=== PATIENT | male | born 1950 | race Caucasian/White ===

== ENCOUNTER 2022-11-17 15:00 | Inpatient (IN) | payer MEDICARE, OTHER, SELFPAY ==
[2022-11-17] VITALS (18 sets, daily range): BP systolic 129–171; BP diastolic 58–111; PULSE 84–135; RESP 19–22; TEMP 36.4–38.6; O2SAT 88–95; BMI 35.1
--- NOTE | ~2022-11-17 | XR_ITS ---
EXAMINATION: XR chest 1V portable INDICATION: Increasing shortness of breath TECHNIQUE: Portable AP chest at 1527 hours COMPARISON: 02/01/2017 FINDINGS: There are airspace opacities of the mid and lower lung zones. Cardiomegaly is noted. No ple ural effusion or pneumothorax. More focal airspace opacities are seen at the left costophrenic angle. Surgical clips project over the right upper quadrant and lower thorax. IMPRESSION: 1. Airspace opacities of the mid and lower lung zones, and more focal airspace opacity of the left co stophrenic angle, consistent with atelectasis versus pneumonia versus pulmonary edema. Reviewed, dictated and finalized at location L. APPLIANCE INSTALLER IMPRESSION: 1. Airspace opacities of the mid and lower lung zones, and more focal airspace opacity of the left costophrenic angle, consistent with atelectasis versus pneu monia versus pulmonary edema.
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
--- NOTE | 2022-11-17 15:03 | ED.SOB ---
HPI - SOB/Dyspnea General Chief Complaint: Weakness Stated Complaint: Ambulance Time Seen by Provider: 11/17/22 15:03 Source: patient, EMS and RN notes reviewed Mode of arrival: EMS Limitations: no limitations History of Present Illness HPI Narrative: patient states that his son was sick 1st about a week ago and then his was sick. He began getting ill 5 days ago. He says he just continued to get worse and more short of breath. He did not get any vaccinations for flu or COVID. patient has a history of COPD, hypertension, hyperlipidemia. MD elicited complaint: shortness of breath Pertinent past history: COPD Onset (ago): day(s) (5) Context: recent illness Timing: constant and progressively worsening Severity: moderate Exacerbating factors: exertion Relieving factors: nothing Known history of: COPD Associated symptoms: wheezing Treatment prior to arrival: oxygen Related Data Home oxygen amount: none Home Medications Medication Instructions Recorded Confirmed albuterol 90 mcg/actuation aerosol 90 mcg inhalation QID PRN Wheezing 11/17/22 11/17/22 inhaler amlodipine 10 mg tablet 10 mg PO DAILY 11/17/22 11/17/22 aspirin 81 mg tablet 81 mg PO DAILY 11/17/22 11/17/22 escitalopram oxalate 10 mg tablet 10 mg PO DAILY 11/17/22 11/17/22 fluticasone 250 mcg-salmeterol 50 1 inh inhalation Q12H 11/17/22 11/17/22 mcg/dose blistr powdr for inhalation fluticasone prop.50 mcg 2 spray intranasal DAILY 11/17/22 11/17/22 spray,suspen-sod.chloride 0.9% nasal spray kit metoprolol tartrate 50 mg tablet 50 mg PO BID 11/17/22 11/17/22 pravastatin 20 mg tablet 20 mg PO DAILY 11/17/22 11/17/22 tamsulosin 0.4 mg capsule 0.4 mg PO DAILY 11/17/22 11/17/22 Allergies Allergy/AdvReac Type Severity Reaction Status Date / Time No Known Allergies Allergy Verified 11/17/22 15:22 Review of Systems Review of Systems: All systems reviewed & are unremarkable except as noted in HPI and below Constitutional: Constitutional: Denies fever(s) Cardiovascular: Cardiovascular: Denies chest pain and Denies rapid heart rate Respiratory: Respiratory: Reports as per HPI Gastrointestinal: Gastrointestinal: Denies nausea and Denies vomiting Musculoskeletal: Musculoskeletal: Reports myalgias Neurologic: Reports headache(s) [facility] Past Medical History Medical History (Updated 11/17/22 @ 18:39 by Madhu Vanegas MD) BPH (benign prostatic hyperplasia) COPD (chronic obstructive pulmonary disease) Depression Hyperlipidemia Hypertension Exam Const: General: no acute distress, alert and ill appearing acutely Nutritional Appearance: well nourished and obese centrally obese Orientation/consciousness: patient oriented x3 Limitations: no limitations HENMT: Head: normal to inspection Ears: external ears normal Face/Nose/Sinus: Normal external nose present Face and sinus: normal facial exam Mouth: Yes moist mucous membranes Eyes: Conjunctivae: conjunctivae normal Pupils: Equal, round and reactive pupils present EOM: EOMs intact bilaterally Neck: Neck: normal visual inspection Resp: Effort & Inspection: tachypneic Auscultation: wheezes (mild) scattered wheezes Cardio: Rate: tachycardic Rhythm: abnormal rhythm irregularly irregular GI: GI Palp: Yes Soft to palpation and No Tenderness to palpation present (GI) Auscultation: normal bowel sounds Back/Spine/Pelvis: Cervical Spine: cervical ROM normal Thoracic/Lumbar Spine: thoraco-lumbar ROM normal Skin: General skin exam: normal color Rashes: no rashes Neuro: General: patient oriented x3, moves all extremities, no focal motor deficits and CN's II-XI intact bilaterally Speech: normal speech Extrem: General: normal to inspection and no clubbing, cyanosis or edema Psych: Mental Status: mental status grossly normal Affect: normal affect Attitude: cooperative Course Course Emergency Course: Patient given fluid bolus initially possible sepsis. Also given 1 g Rocephin a
[2022-11-17] MEDS: IBUPROFEN 600 MG TABLET PO (15:26)
[2022-11-17] MEDS: SODIUM CHLORIDE 0.9% IV 1,000 ML 999 ML IV CONT (15:26)
--- NOTE | 2022-11-17 15:38 | ECG_ITS ---
Measurements Intervals [place] Rate: 127 P: TX: 0 QRS: -69 QRSD: 145 T: 45 QT: 309 QTc: 450 Interpretive Statements ATRIAL FLUTTER/TACHYCARDIA WITH RAPID VENTRICULAR RESPONSE RIGHT BUNDLE BRANCH BLOCK LEFT ANTERIOR FASCICULAR BLOCK BASELINE ARTIFACT- I, II, III, AVR, AVL, AVF ABNORMAL ECG NO PREVIOUS ECG AVAILABLE FOR COMPARISON Electronically Signed On 11-17-2022 16:58:54 PEN OR PENCIL ASSEMBLY MACHINE OPERATOR by Shayne Gallegos D.O.
[2022-11-17 15:42] LABS: Influenza A QL RT-PCR Negative (Negative); Influenza B QL RT-PCR Negative (Negative); SARS-CoV-2 RNA PCR Positive (Negative)
[2022-11-17 15:44] LABS: Basophils Absolute Auto 0.05 K/mm3 (0.00-0.10); Basophils Percent Auto 0.3 % (0.0-1.0); Eosinophils Absolute Auto 0.22 K/mm3 (0.02-0.50); Eosinophils Percent Auto 1.4 % (1.0-6.0); Hematocrit 35.4 % (37.0-46.0); Hemoglobin 12.3 g/dL (12.4-15.3); Immature Granulocyte Absolute 0.08 K/mm3 (0.00-0.00); Immature Granulocyte Percent A 0.5 % (0.0-0.0); Lymphocytes Absolute Auto 1.25 K/mm3 (1.10-4.50); Lymphocytes Percent Auto 7.8 % (18.0-42.0); Mean Corpuscular HGB Conc 34.7 g/dL (32.0-36.0); Mean Corpuscular Hemoglobin 34.4 pg (27.0-31.0); Mean Corpuscular Volume 98.9 fL (78.0-102.0); Mean Platelet Volume 9.2 fl (8.7-11.0); Monocytes Percent Auto 5.6 % (2.0-11.0); Neutrophils Absolute Auto 13.6 K/mm3 (1.7-7.2); Neutrophils Percent Auto 84.4 % (50.0-70.0); Platelet Count Result 389 K/mm3 (150-420); Red Blood Count 3.58 M/mm3 (4.70-6.10); Red Cell Distribution Width 14.1 % (11.6-14.4); White Blood Count 16.1 K/mm3 (4.8-10.8)
[2022-11-17] MEDS: ALBUTEROL SULFATE (*SP) INHALER 4 PUFF INHALATION ×2 (15:59→19:58)
[2022-11-17 16:10] LABS: Alanine Aminotransferase 14 U/L (16-63); Albumin Level 3.4 g/dL (3.4-5.0); Alkaline Phosphatase 152 U/L (46-116); Anion Gap 11 mmol/L (8-16); Aspartate Amino Transferase 18 U/L (15-37); Bilirubin,Total 0.7 mg/dL (0.00-1.00); Blood Urea Nitrogen 20 mg/dL (7-18); Calcium 8.8 mg/dL (8.5-10.1); Carbon Dioxide 24 mmol/L (21-32); Chloride 96 mmol/L (98-108); Estimated Glomerular Filt Rate 42; Ferritin 279 ng/mL (26-388); Glucose 188 mg/dL (70-99); Magnesium 1.9 mg/dL (1.8-2.4); NT Pro B Type Natriuretic Pept 303 pg/mL (0-125); Osmolality Calculated 279 mOsm/kg (285-295); Potassium 4.4 mmol/L (3.5-5.1); Sodium 131 mmol/L (136-145); Total Protein 7.2 g/dL (6.4-8.2)
[2022-11-17 16:12] LABS: CRP 13.3 mg/dL (0.0-0.9); Troponin I 11.6 ng/L (0.00-60.4)
--- NOTE | 2022-11-17 16:20 | PC.NURSE ---
SPOKE WITH FAMILY ARNALDO AND LAWRENCE THAT WERE IN THE WAITING ROOM AND UPDATED ON PT STATUS, THEY LEFT FOR THE EVENING. PT IS AWARE OF STATUS AT THIS TIME. PT IS COVID + AND ISOLATION PRECAUTIONS HAVE BEEN IN PLACE. IV MEDICATIONS ARE INFUSING ORDERED WITHOUT DIFFICULTY. WILL CONTINUE TO MONITOR. PT IS REPOSITIONED IN BED WITH PILLOWS IN PLACE. WILL CONTINUE TO MONITOR.
--- NOTE | 2022-11-17 16:39 | PC.NURSE ---
PT IS TO BE ADMITTED TO ROOM 204, HAS BEEN NOTIFIED AT [phone]. PT AND ARE AWARE AND AGREEABLE TO PLAN OF CARE. WILL CONTINUE TO MONITOR.
--- NOTE | 2022-11-17 17:10 | ADMGEN ---
This patient, Mohan Zapien, was admitted to 2nd Floor Room 204-2. Patient/family oriented to hospital policies and general routines including ID bracelet, bed and alarms, visiting hours, pain management, procedures, bathroom and other care routines, personal items, smoking policy, room service/diet, and visiting hours. Information on how to activate the Rapid Response Team has been discussed. Patient/Family are encouraged to report perceived risks to care and to ask questions if they do not understand what they are told or what they should do.
[2022-11-17] MEDS: SALMET XINAFT/FLUTIC PROPIN 250 MCG/50 MCG INH CAP 1 PUFF INHALATION (18:15)
[2022-11-17] MEDS: METOPROLOL TARTRATE 50 MG TAB PO (19:59)
[2022-11-18] VITALS (7 sets, daily range): BP systolic 140–158; BP diastolic 74–84; PULSE 82–106; RESP 19–20; TEMP 36.9–37.1; O2SAT 0–93
[2022-11-18] MEDS: SODIUM CHLORIDE 0.9% IV 1,000 ML 75 ML IV CONT (00:06)
[2022-11-18] MEDS: FUROSEMIDE INJ 20 MG/2 ML VIAL 10 MG IV PUSH (00:06)
[2022-11-18 05:18] LABS: Basophils Absolute Auto 0.02 K/mm3 (0.00-0.10); Basophils Percent Auto 0.1 % (0.0-1.0); Hemoglobin 11.6 g/dL (12.4-15.3); Immature Granulocyte Absolute 0.11 K/mm3 (0.00-0.00); Immature Granulocyte Percent A 0.7 % (0.0-0.0); Lymphocytes Absolute Auto 0.83 K/mm3 (1.10-4.50); Lymphocytes Percent Auto 5.6 % (18.0-42.0); Mean Corpuscular HGB Conc 34.1 g/dL (32.0-36.0); Mean Corpuscular Hemoglobin 33.7 pg (27.0-31.0); Mean Corpuscular Volume 98.8 fL (78.0-102.0); Mean Platelet Volume 9.5 fl (8.7-11.0); Monocytes Absolute Auto 0.34 K/mm3 (0.10-0.90); Monocytes Percent Auto 2.3 % (2.0-11.0); Neutrophils Absolute Auto 13.6 K/mm3 (1.7-7.2); Neutrophils Percent Auto 91.3 % (50.0-70.0); Platelet Count Result 383 K/mm3 (150-420); Red Blood Count 3.44 M/mm3 (4.70-6.10); White Blood Count 14.9 K/mm3 (4.8-10.8)
[2022-11-18] MEDS: SALMET XINAFT/FLUTIC PROPIN 250 MCG/50 MCG INH CAP 1 PUFF INHALATION ×2 (05:30→16:50)
[2022-11-18 05:32] LABS: Anion Gap 11 mmol/L (8-16); Blood Urea Nitrogen 26 mg/dL (7-18); Calcium 8.8 mg/dL (8.5-10.1); Carbon Dioxide 24 mmol/L (21-32); Chloride 95 mmol/L (98-108); Estimated CRCL calculation 44 ml/min; Estimated Glomerular Filt Rate 44; Glucose 351 mg/dL (70-99); Osmolality Calculated 288 mOsm/kg (285-295); Potassium 4.4 mmol/L (3.5-5.1); Sodium 130 mmol/L (136-145)
[2022-11-18] MEDS: ENOXAPARIN 40 MG/0.4 ML SYRINGE SUB-Q (09:06)
[2022-11-18] MEDS: amLODIPine BESYLATE 5 MG TABLET 10 MG PO (09:09)
[2022-11-18] MEDS: METOPROLOL TARTRATE 50 MG TAB PO ×2 (09:09→21:02)
[2022-11-18] MEDS: ASPIRIN 81 MG ENTERIC TABLET PO (09:09)
[2022-11-18] MEDS: ESCITALOPRAM OXALATE 10 MG TABLET PO (09:09)
[2022-11-18] MEDS: PRAVASTATIN SODIUM 20 MG TABLET PO (09:10)
[2022-11-18] MEDS: TAMSULOSIN HCL 0.4 MG CAPSULE PO (09:10)
--- NOTE | 2022-11-18 09:31 | PM.IMHP ---
H&P: HPI History of Present Illness Date/Time: 11/18/22 09:31 Chief Complaint: Shortness of breath Narrative: this is a 72-year-old male that presented to our emergency department with complaints of worsening shortness of breath with cold-like symptoms. Patient has a past medical history of BPH, COPD, depression, hyperlipidemia and hypertension. According to patient approximately 4 days ago he started to developed cold-like symptoms. Patient describes symptoms as congestion, a nonproductive cough, runny nose and weakness. According to patient his day of admission to our hospital is when he developed weakness. Patient notes that he was unable to ambulate or stand without assist. At that point his called EMS and transported here to our emergency department. Patient was found to be COVID positive. Patient admitted for COVID pneumonia. Patient has not been vaccinated. Patient notes that his situation has improved he is anxious to discharge home. I informed patient that he will stay for 1 additional day. Vital signs 98.7, 106, 20, 92% on 2 L, 158/74, BC 16.1, hemoglobin 12.3, hematocrit 35.4, platelets 389, sodium 131, potassium 4.4, BUN 20, creatinine 1.60, glucose 188,, lactic acid 2.0, COVID positive, chest x-ray indicate COVID pneumonia. The patient denies CP, palpitation, extremity numbness, lightheadedness, dizziness, constipation, diarrhea, chills, or fever. Review of Systems Review of Systems: A 14 organ system Review of Systems was performed and pertinent positives included in the HPI, otherwise remaining ROS is negative. [facility] Past Medical History Medical History (Updated 11/18/22 @ 10:29 by LAMONTE Bess) BPH (benign prostatic hyperplasia) COPD (chronic obstructive pulmonary disease) Depression Hyperlipidemia Hypertension Social History Social History Smoking status: Unknown if ever smoked Alcohol intake: never Substance use: never Substance use type: does not use Lack of Transportation: No Lack of Food: Never True Current Housing: I Have Housing Concerned About Future Housing: No Difficulty Paying Gas/Electric Bills: No Difficulty Paying for Meds: No Currently Unemployed: No Education: Decline to Answer Difficulty w/ Childcare or Family Care: No Spiritual care concerns: No Meds Home Medications and Allergies Home Medications Medication Instructions Recorded Confirmed Type albuterol 90 mcg/actuation aerosol 90 mcg inhalation QID PRN Wheezing 11/17/22 11/17/22 History inhaler amlodipine 10 mg tablet 10 mg PO DAILY 11/17/22 11/17/22 History aspirin 81 mg tablet 81 mg PO DAILY 11/17/22 11/17/22 History escitalopram oxalate 10 mg tablet 10 mg PO DAILY 11/17/22 11/17/22 History fluticasone 250 mcg-salmeterol 50 1 inh inhalation Q12H 11/17/22 11/17/22 History mcg/dose blistr powdr for inhalation fluticasone prop.50 mcg 2 spray intranasal DAILY 11/17/22 11/17/22 History spray,suspen-sod.chloride 0.9% nasal spray kit metoprolol tartrate 50 mg tablet 50 mg PO BID 11/17/22 11/17/22 History pravastatin 20 mg tablet 20 mg PO DAILY 11/17/22 11/17/22 History tamsulosin 0.4 mg capsule 0.4 mg PO DAILY 11/17/22 11/17/22 History Allergies Allergy/AdvReac Type Severity Reaction Status Date / Time No Known Allergies Allergy Verified 11/17/22 15:22 Vital Signs Vital Signs - 24 hr 11/17/22 15:00 11/17/22 15:00 11/17/22 15:13 Temperature 101.5 F H Pulse Rate 124 H 124 H 106 H Respiratory Rate 20 Blood Pressure 167/58 H Pulse Oximetry 88 L 91 Oxygen Delivery Room Air Nasal Cannula Oxygen Flow Rate 2 11/17/22 15:15 11/17/22 15:16 11/17/22 15:30 Temperature Pulse Rate 135 H 115 H 114 H Respiratory Rate Blood Pressure 129/111 H Pulse Oximetry 94 94 94 Oxygen Delivery Oxygen Flow Rate 11/17/22 15:45 11/17/22 16:00 11/17/22 16:10 Temperature Pulse Rate 107 H 111 H 115 H Respiratory Rate Blood Pr
--- NOTE | 2022-11-18 11:50 | PC.NURSE ---
Called pt's , Denise. Gave update and relayed request from pt for his glasses and cellphone to be brought from home.
[2022-11-18] MEDS: traZODone HCL 50 MG TABLET PO (21:02)
[2022-11-18] MEDS: ALBUTEROL SULFATE (*SP) INHALER 4 PUFF INHALATION (21:13)
--- NOTE | 2022-11-18 21:52 | PC.NURSE ---
Patient SOB with exertion. SPO2 @ 88% with O2 @ 2. O2 turned up to 2.5 LPM/NC. Nurse discussed making sure the O2 is on properly and not to get up without assistance and O2. Patient stated understanding. IV intact with no swelling, drainage, redness seen. Dressing to site clean, dry, intact. Urinal, personal items, and call light are within reach. SR up x2.
--- NOTE | 2022-11-18 23:30 | PC.NURSE ---
Pt sitting on the edge of the chair and is very short of breath and confused. Pt was incontinent of urine and was trying to go into the hallway. Pt assisted back to bed but he continued to try to get out of bed. Pt became very agitated and restless and was becoming more short of breath
[2022-11-19] VITALS (8 sets, daily range): BP systolic 137–140; BP diastolic 64–70; PULSE 116–125; RESP 28–40; TEMP 38.2–38.8; O2SAT 79–95
--- NOTE | 2022-11-19 00:25 | PC.NURSE ---
Pt given ativan 1 mg IVP as ordered.
[2022-11-19] MEDS: ACETAMINOPHEN 325 MG TABLET 650 MG PO (00:42)
--- NOTE | 2022-11-19 00:42 | PC.NURSE ---
Pt given tylenol 650 mg PO to relieve fever of 101.8.
[2022-11-19 01:01] LABS: Base Excess ABG -6.8 mmol/L (0-2); Oxygen Content ABG 16.1 %vol (16.0-22.0); Oxygen Saturation ABG 95.2 % (95-97); Oxyhemoglobin 94.8 % (94-100); PCO2 ABG 29.2 mmHg (35-45); PO2 ABG 82.7 mmHg (75-85); pH ABG 7.38 (7.35-7.45)
[2022-11-19 01:02] LABS: Device NON-REBREATHER MASK; Modified Allen's Test Pass; Site Drawn RIGHT RADIAL
[2022-11-19] MEDS: methylPREDNISolone SOD SUCC 125 MG VIAL 80 MG IV PUSH (01:03)
--- NOTE | 2022-11-19 01:05 | PC.NURSE ---
Pt given solumedrol 80 mg IBP as ordered.
--- NOTE | 2022-11-19 01:55 | PC.NURSE ---
New orders for a wolf catheter and lasix 80 mg IVP.
[2022-11-19] MEDS: FUROSEMIDE INJ 100 MG/10 ML VIAL 80 MG IV PUSH (01:56)
--- NOTE | 2022-11-19 02:11 | PM.EVENT ---
Event Note Event Note Event Note: Recieved call for nursing staff stating that patient was anxious ordered Ativan. received a call later from nursing staff stating that patient sat's dropped in the mid 80's patient was place on non rebreather at 15 later patient remain anxious.cxr and abg ordered then recieved a call from RT stating that patient was unstable and need to transition to a high level of care. Call to [facility] for transfer instructed nursing staff to call a rapid response if needed and I would be on my way to the facility for transfer of the patient.
--- NOTE | 2022-11-19 02:27 | PM.DS ---
DS: Discharge Diagnosis Discharge Diagnosis (1) Pneumonia due to COVID-19 virus: Code(s): U07.1 - COVID-19; J12.82 - Pneumonia due to coronavirus disease 2019 Status: Acute Assessment and Plan: patient COVID positive x-ray indicate COVID pneumonia wbc's 16.1>14.9 improving lactic acid 2.0 CRP 13.3 continue azithromycin Rocephin and Zithromax and dexamethasoneia continue supplementary oxygen continue nebulizer with inhalers (2) COPD (chronic obstructive pulmonary disease): Code(s): J44.9 - Chronic obstructive pulmonary disease, unspecified Status: Acute Assessment and Plan: worsened by COVID pneumonia Jayme to COVID pneumonia (3) Electrolyte imbalance: Code(s): E87.8 - Other disorders of electrolyte and fluid balance, not elsewhere classified Status: Acute Assessment and Plan: sodium 131>130 IV fluids started discontinue encourage fluid intake will monitor (4) Acute on chronic kidney failure: Code(s): N17.9 - Acute kidney failure, unspecified; N18.9 - Chronic kidney disease, unspecified Status: Acute Assessment and Plan: secondary to viral illness creatinine 1.60>1.55 improved avoid nephrotoxins agents renal dose medication DS: Summary Time Spent with Patient Time attestation: Total time spent providing and/or coordinating discharge services: Exam Narrative: GENERAL: This is a well-nourished, well-developed patient, in no apparent distress. HEAD: normocephalic, atraumatic. EYES: PERRL. Sclera clear/white. Vision is grossly intact. EARS: External ears normal, auditory canals clear and without drainage, TMs normal without perforation. Hearing grossly intact. NOSE: External nose normal with no obvious nasal discharge, nares without redness, no rhinorrhea. THROAT: Mucous membranes moist, posterior pharynx clear. NECK: Neck supple, non-tender without lymphadenopathy, masses or thyromegaly. CARDIOVASCULAR: Regular rate and rhythm without murmurs, gallops, or rubs. RESPIRATORY Diminished throughout GASTROINTESTINAL: Abdomen soft, non-tender, nondistended. Bowel sounds are active. No hepato-splenomegaly, or palpable masses. No guarding. SKIN: warm, intact with no suspicious lesions or rash, good texture and turgor. NEURO: awake, alert, and oriented to person, place and time. There were no obvious focal neurologic abnormalities. EXTREMITIES: Normal range of motion. No edema. No calf tenderness. DS: Data Data Completed and Pending Labs on day of discharge: Labs from last 24 hours 11/19/22 11/18/22 11/18/22 00:59 04:58 04:58 WBC 14.9 H RBC 3.44 L Hgb 11.6 L Hct 34.0 L MCV 98.8 MCH 33.7 H MCHC 34.1 RDW 14.0 Plt Count 383 MPV 9.5 Immature Gran % (Auto) 0.7 H Neut % (Auto) 91.3 H Lymph % (Auto) 5.6 L [place] % (Auto) 2.3 Eos % (Auto) 0.0 L Baso % (Auto) 0.1 Lymph # (Auto) 0.83 L [place] # (Auto) 0.34 Eos # (Auto) 0.00 L Baso # (Auto) 0.02 Abs Immat Gran (auto) 0.11 H Absolute Neuts (auto) 13.6 H Absolute Nucleated RBC 0.00 Nucleated RBC % 0.0 Puncture Site Right radial ABG pH 7.38 ABG pCO2 29.2 L ABG pO2 82.7 ABG PO2/FiO2 Ratio Not Reportable ABG HCO3 17.0 L ABG O2 Saturation 95.2 ABG O2 Content 16.1 ABG Base Excess -6.8 L A-a Gradient Not Reportable Oxyhemoglobin 94.8 Total Hemoglobin 12.0 O2 Delivery Device Non-rebreather mask O2 Liters/Min 15.0 Sodium 130 L Potassium 4.4 Chloride 95 L Carbon Dioxide 24 Anion Gap 11 BUN 26 H Creatinine 1.55 H Estim Creat Clear Calc 44 Estimated GFR 44 L Glucose 351 H Calculated Osmolality 288 Calcium 8.8 Preliminary micro results at discharge 11/17/22 15:34 Blood Culture - Preliminary Blood 11/17/22 15:26 Blood Culture - Preliminary Blood Discharge Plan Discharge Discharge
[2022-11-19] MEDS: LORazepam INJ (*CRX) 2 MG/ML VIAL 1 MG IV PUSH (02:45)
--- NOTE | 2022-11-19 04:08 | PC.NURSE ---
Pt's notified of pt's deteriorating condition. is agreeable to pt being intubated.
[2022-11-19] MEDS: MIDAZOLAM HCL (*CRX) 2 MG/2 ML VIAL 4 MG IV PUSH (04:45)
--- NOTE | 2022-11-19 04:45 | PC.NURSE ---
Pt's respiratory rate continues to deteriorate rapidly; Pt given versed 4 mg and rosanne 50 mg IVP to prepare pt for intubation procedure
[2022-11-19] MEDS: ROCURONIUM BROMIDE 50 MG/5 ML VIAL IV PUSH (04:50)
--- NOTE | 2022-11-19 05:00 | PC.NURSE ---
Pt intubated with 7.0 ET tube; SAO2 improved slightly to 86%
[2022-11-19] MEDS: EPINEPHrine INJ 1 MG/10 ML SYRINGE IV PUSH ×3 (05:03→05:20)
[2022-11-19] MEDS: EPINEPHrine INJ 1 MG/10 ML SYRINGE XX (05:05)
--- NOTE | 2022-11-19 05:05 | PC.NURSE ---
Pt given epinephrine 1 mg IVP as ordered.
--- NOTE | 2022-11-19 05:10 | PC.NURSE ---
Pt given epinephrine 1 mg IVP and CPR continues.
--- NOTE | 2022-11-19 05:20 | PC.NURSE ---
Epinephrine 1mg IVP given with no response noted; SAO2 is 33% with nonrebreather on.
--- NOTE | 2022-11-19 05:25 | PC.NURSE ---
Pt remains unresponsive to any interventions. Code called at this time
--- NOTE | 2022-11-19 05:44 | PM.DDS ---
Discharge Summary Date and Time Date of : 11/19/22 Time of : 05:22 Provider Pronounced By: Dr Mathis Probable Cause of Probable Cause of : covid/ respiratory distress Summary Hospital Course: this is a 72-year-old male that presented to our emergency department with complaints of worsening shortness of breath with cold-like symptoms.? Patient has a past medical history of BPH, COPD, depression, hyperlipidemia and hypertension.? According to patient approximately 4 days ago he started to developed cold-like? symptoms.? Patient describes symptoms as congestion, a nonproductive cough, runny nose and weakness.? According to patient the day of admission to our hospital is when he developed weakness.? Patient notes that he was unable to ambulate or stand without assist.? At that point his called EMS and he was transported here to our emergency department.? Patient was found to be COVID positive.? Patient admitted for COVID pneumonia.? Patient had not been vaccinated.? overnight patient condition worsen overnight patient condition worsened he required 15 L non-rebreather mask with tachycardia tachypnea. patient was accepted at [facility] by . [facility] hospitalist requested that patient be intubated before transfer. attempt to intubate in the process patient coded. pronounced at approximately 5 am. I personally called patient's to inform her of her 's Additional Data Confirmation of as documented by pronouncing clinician: Palpable Pulses and Heart Tones Family: contacted Name of Provider Notified: Denise herzog Was code activated?: Yes
--- NOTE | 2022-11-19 06:10 | PC.NURSE ---
Family notified of pt's passing. Family asked that [facility] be notified.
--- NOTE | 2022-11-19 08:30 | PC.NURSE ---
No family here, [facility] called for hot die picker
--- NOTE | 2022-11-19 09:30 | PC.NURSE ---
Body released to [facility] warren
--- NOTE | 2022-11-19 09:50 | PM.EVENT ---
Event Note Event Note Event Note: code called ran by Dr. Mathis 0447 versed 4 mg 0449 rosanne 50 mg 0450 intubated et tube 7.0 at 0500 0503 epi 1mg 0506 epi 1 mg 0512 epi 1 mg 0518 epi 1mg per nursing notes
== END 2022-11-19 05:22 | disposition expired | DRG 177 ==
LOC: CHSED 16:14 → CHS2ND 16:40
PROVIDERS: Nurse Practitioner; Nurse Practitioner Family; Admitting Provider Internal Medicine; Emergency Provider Emergency Medicine; Visit Provider Internal Medicine
DX: U07.1 COVID-19 (principal); J12.82 Pneumonia due to coronavirus disease 2019; J44.0 Chronic obstructive pulmonary disease with (acute) lower respiratory infection; I10 Essential (primary) hypertension; E78.5 Hyperlipidemia, unspecified; N40.0 Benign prostatic hyperplasia without lower urinary tract symptoms; F32.A Depression, unspecified; Z28.310 Unvaccinated for COVID-19; Z79.82 Long term (current) use of aspirin
CPT/HCPCS: 36415; 36600; 71045; 80048; 80053; 82728; 82805; 83605; 83735; 83880; 84484; 85025; 86140; 87040; 87636; 93005; 96361; 96365; 96375; 99285; A9270; J0171; J0456; J0696; J1100; J1650; J1940; J2060; J2250; J2930; J7030